=== PATIENT | male | born 2000 | race Caucasian/White ===

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

== ENCOUNTER → 2021-09-16 08:35 | Outpatient (CLI) | payer OTHER, SELFPAY ==
--- NOTE | 2021-09-16 08:45 | CT_ITS ---
FINAL REPORT TECHNIQUE: Axial CT images of the abdomen and pelvis were obtained before and after the administration of IV contrast. This study was performed with techniques to keep radiation doses as low as reasonably achievable (ALARA). Individualized dose reduction techniques using automated exposure control or adjustment of mA and/or kV according to the patient''s size were employed. CLINICAL HISTORY: EPIGASTRIC MASS; LOWER ABDOMINAL PAIN PLACED BB ON MASS. FINDINGS: Abdomen: The lung bases are clear. The heart is normal in size. The liver has an unremarkable appearance, without evidence of mass or biliary duct dilatation. Gallbladder is present. The spleen is unremarkable. No adrenal masses present. The pancreas has an unremarkable appearance. The kidneys enhance normally. The aorta is normal in caliber. There is no free fluid or adenopathy. No mass or abnormal fluid collection is seen. A marker was placed at the midline abdomen at the site of the palpable abnormality. Beneath the marker is a small supraumbilical hernia containing fat. Hernia orifice measures approximately 5 mm in transverse dimension. The hernia sac measures 22 mm in transverse dimension. There is also a small umbilical hernia containing fat. Precontrast images demonstrate no evidence of nephrolithiasis. Pelvis: The appendix is remarkable. The urinary bladder is unremarkable. No inflammatory process is seen. There is no evidence of mass or adenopathy. There is no evidence of bowel obstruction. IMPRESSION: Supraumbilical hernia at the site of the palpable abnormality. Small umbilical hernia containing fat. Reviewed, Interpreted and Dictated by Levi Benson III, MD Transcribed by Hellen Salas Authenticated and . [facility]
== END ==
PROVIDERS: PCP Internal Medicine Adolescent Medicine; Visit Provider Nurse Practitioner Family
DX: R19.06 Epigastric swelling, mass or lump (principal); R10.30 Lower abdominal pain, unspecified
CPT/HCPCS: 74178; Q9967

== ENCOUNTER → 2021-10-22 09:38 | Outpatient (CLI) | payer OTHER, SELFPAY ==
[2021-10-22 09:47] LABS: Microscopic, Urine URINE MICROSCOPIC (MICROSCOPIC)
[2021-10-22 11:09] LABS: Appearance,Urine CLEAR (Clear); Bilirubin,Urine Negative (Negative); Blood, Urine Negative (Negative); Color,Urine YELLOW (Yellow); Glucose,Urine (UA) Negative (Negative); Ketones,Urine Negative (Negative); Leukocyte Esterase,Urine Negative (Negative); Nitrate,Urine Negative (Negative); Protein,Urine Negative (Negative); Specific Gravity, Urine >= 1.030 (1.005-1.030); Urobilinogen,Urine 0.2 EU/dl (0.2)
[2021-10-22 11:28] LABS: Bacteria,Urine Trace /lpf
== END ==
PROVIDERS: PCP Internal Medicine Adolescent Medicine; Visit Provider Surgery
DX: M54.50 Low back pain, unspecified (principal)
CPT/HCPCS: 81001; 87086

== ENCOUNTER → 2022-07-17 13:26 | Outpatient (CLI) | payer OTHER, SELFPAY ==
[2022-07-17 13:33] LABS: Microscopic, Urine URINE MICROSCOPIC (MICROSCOPIC)
[2022-07-17 14:11] LABS: Appearance,Urine CLEAR (Clear); Bilirubin,Urine Negative (Negative); Blood, Urine Negative (Negative); Color,Urine YELLOW (Yellow); Glucose,Urine (UA) Negative (Negative); Ketones,Urine Negative (Negative); Leukocyte Esterase,Urine Negative (Negative); Nitrate,Urine Negative (Negative); PH,Urine 5.5 (5.0-8.5); Protein,Urine Negative (Negative); Specific Gravity, Urine >= 1.030 (1.005-1.030); Urobilinogen,Urine 0.2 EU/dl (0.2)
[2022-07-17 14:13] LABS: Basophils % 0.8 % (0.1-2.0); Eosinophils # 0.1 K/mm3 (0.0-0.4); Eosinophils % 1.6 % (0.1-12.0); Hematocrit 43.5 % (42.0-52.0); Hemoglobin 14.2 g/dL (14.1-18.0); Hemoglobin A1C 4.9 % (4.0-6.0); Lymphocytes # 1.3 K/mm3 (0.7-4.5); Lymphocytes % 26.1 % (10-50); Mean Corpuscular HGB Conc 32.8 g/dL (31.8-35.4); Mean Corpuscular Hemoglobin 28.5 pg (27.0-31.2); Mean Platelet Volume 8.1 fl (7.4-10.4); Monocytes # 0.3 K/mm3 (0.1-1.0); Monocytes % 6.3 % (1.7-9.3); Neutrophils # 3.1 K/mm3 (1.8-7.8); Neutrophils % 65.2 % (37.0-80.0); Platelet Count 287 K/mm3 (142-424); Red Cell Distribution Width 12.7 % (11.5-17.5); White Blood Count 4.8 K/mm3 (4.8-10.8)
[2022-07-17 14:22] LABS: Squamous Epithelial Cell,Urine Occasional #/hpf (0-5)
[2022-07-17 14:57] LABS: Alanine Aminotransferase 39 U/L (12-78); Albumin Level 4.7 g/dl (3.5-5.0); Alkaline Phosphatase 77 U/L (38-126); Anion Gap 14.2 mEq/L (5-15); Aspartate Amino Transferase 38 U/L (17-59); Bilirubin,Total 0.5 mg/dl (0.2-1.3); Blood Urea Nitrogen 19 mg/dl (9-20); Calcium 9.1 mg/dl (8.4-10.2); Carbon Dioxide 27 mmol/L (22.0-30.0); Chloride 101 mmol/L (98-107); Chol/HDL Ratio 4.3 (1-3.5); Cholesterol 208 mg/dl (140-200); Estimated Glomerular Filt Rate 85 ml/min (>60); GFR (African American) 102 ML/MIN (>60); Globulin 2.4 g/dL (1.3-3.2); Glucose 99 mg/dl (74-100); HDL Cholesterol 48 mg/dl (40-60); Potassium 4.2 mmoL/L (3.5-5.1); Sodium 138 mmol/L (136-145); Total Protein,Serum 7.1 g/dl (6.3-8.2); Triglycerides 71 mg/dl (30-150); VLDL Cholesterol 14 mg/dL (0-40)
[2022-07-17 15:07] LABS: Direct LDL Cholesterol 122.42 mg/dL (100-129)
[2022-07-17 15:14] LABS: Triiodothryronine (T3) Uptake 30 % (23.5-40.5)
[2022-07-17 15:15] LABS: Free Thyroxine Index 2.2 ug/dL (5.93-13.13); T4 (Thyroxine) 7.3 ug/dl (5.53-11.0)
== END ==
PROVIDERS: PCP Internal Medicine Adolescent Medicine; Visit Provider Nurse Practitioner Family
DX: R03.0 Elevated blood-pressure reading, without diagnosis of hypertension (principal)
CPT/HCPCS: 36415; 80053; 80061; 81001; 83036; 84436; 84443; 84479; 85025

== ENCOUNTER 2024-05-26 10:29 | Outpatient (CLI) | payer BC, SELFPAY ==
--- NOTE | 2024-05-26 10:33 | CT_ITS ---
FINAL REPORT TECHNIQUE: Axial CT of the abdomen and pelvis, without and with IV contrast. This study was performed with techniques to keep radiation doses as low as reasonably achievable, (ALARA). Individualized dose reduction techniques using automated exposure control or adjustment of mA and/or kV according to the patient''s size were employed. CLINICAL HISTORY: SUPRAUMBILICAL HERNIA/MASS ANTERIOR ADB WALL COMPARISON: 09/16/2021 FINDINGS: Abdomen: Lung bases are clear. Liver has an unremarkable CT appearance. The spleen, pancreas and adrenal glands are unremarkable. Precontrast imaging shows no renal stone disease. Postcontrast imaging of the kidneys shows no mass or obstruction. No bowel obstruction or fluid collection is seen. There is a tiny supraumbilical hernia containing omental fat occurring 6.5 cm superior to the umbilicus. The abdominal wall defect measures 5 mm or less. The hernia sac measures up to 18 mm, unchanged from previous. There is a tiny umbilical hernia containing back, stable. Pelvis: The appendix is normal. Pelvic bowel loops are unremarkable. No fluid collection or adenopathy is seen. IMPRESSION: Stable tiny supraumbilical hernias. Reviewed, Interpreted and Dictated by Dayanara Hawley MD Transcribed by Hellen Salas Authenticated and [facility]
[2024-05-26] MEDS: SODIUM CHLORIDE 0.9% 10ML SYR (RAD ONLY) 10 ML IV (10:49)
[2024-05-26] MEDS: IOPAMIDOL-370 (76%);100ML BOTTLE 75 ML IV (10:50)
== END 2024-05-26 23:59 | disposition home or self-care (01) ==
LOC: RAD 10:30
PROVIDERS: PCP Internal Medicine Adolescent Medicine; Visit Provider Nurse Practitioner Family
DX: K43.9 Ventral hernia without obstruction or gangrene (principal); R22.2 Localized swelling, mass and lump, trunk
CPT/HCPCS: 74178; Q9967